=== PATIENT | female | born 1965 | race Caucasian/White ===

== ENCOUNTER → 2024-09-17 16:37 | Outpatient (REF) | payer OTHER, SELFPAY | LOC: RAD 16:37 | PROVIDERS: ATTENDING PHYSICIAN Physician Assistant Medical | DX: R05.1 Acute cough (principal); R50.9 Fever, unspecified | CPT/HCPCS: 71046 ==

== ENCOUNTER 2025-06-30 17:48 | Emergency (ER) | payer OTHER, SELFPAY ==
[2025-06-30 17:50] VITALS: BP 168/86
[2025-06-30] MEDS: TORADOL 15 MG IV (18:51)
--- NOTE | 2025-06-30 19:16 | ED.GENMED ---
History of Present Illness
<Олег Uribe PA-C - Last Filed: 07/01/25 08:07>
General
Chief Complaint: DVT/Possible Blood Clot
Time Seen by Provider: 06/30/25 18:11
History of Present Illness
History of Present Illness:
59-year-old female presents to the emergency department for evaluation of left anterior lower leg pain for the past week. Worse when attempting to ambulate and is also kept her from sleeping at night. Denies any trauma. Feels that the leg is
swollen and is concerned about a DVT. Not on anticoagulants. No recent travel or prolonged immobilization
Past History
<Олег Uribe PA-C - Last Filed: 07/01/25 08:07>
Past History
ED Past Medical History: None
ED Past Surgical History: Other (bariatric surgery)
Social History
Tobacco: Non-smoker
Personal:
Review of Systems
<MARGARITA Segovia Last Filed: 07/01/25 08:07>
Review of Systems
Allergies reviewed?: Yes
All Other Systems: ROS reviewed and negative except as documented in HPI and ROS
Phy Exam
<MARGARITA Segovia Last Filed: 07/01/25 08:07>
Physical Exam
Physical Exam:
GEN: Well appearing, NAD, WDWN
HEENT: Oral mucosa moist, no scleral icterus
Cardiac: Regular rate
Lung: No respiratory distress, no tachypnea
MSK: No gross deformity or injuries. No reproducible tenderness to the left lower leg. No appreciable edema. Left dorsalis pedis pulse is strong. No pain with resisted flexion or extension at the ankle
Skin: Good color, no pallor or jaundice, no rashes
Neuro: AO x3, moves all extremities freely
Psych: Calm, cooperative
Course
<Олег Uribe PA-C - Last Filed: 07/01/25 08:07>
Orders/Labs/Results
Orders:
Orders
06/30/25 17:54
US Legs, Left [US Periph Venous LOWER Ext LT] Urgent
Comment:
Reason For Exam: pain and swelling
06/30/25 18:35
Ketorolac [Toradol] 15 mg IV NOW STA
Vital Signs
Initial and Last Documented VS:
Initial Vital Signs
Temp Pulse Resp BP Pulse Ox
98.1 F 71 20 168/86 99
06/30/25 17:50 06/30/25 17:50 06/30/25 17:50 06/30/25 17:50 06/30/25 17:50
Last Documented Vital Signs
Temp Pulse Resp BP Pulse Ox
98.1 F 71 20 168/86 99
06/30/25 17:50 06/30/25 17:50 06/30/25 17:50 06/30/25 17:50 06/30/25 19:16
<Enoch Larson PA-C - Last Filed: 06/30/25 20:26>
Orders/Labs/Results
Orders:
Orders
06/30/25 17:54
US Legs, Left [US Periph Venous LOWER Ext LT] Urgent
Comment:
Reason For Exam: pain and swelling
06/30/25 18:35
Ketorolac [Toradol] 15 mg IV NOW STA
Vital Signs
Initial and Last Documented VS:
Initial Vital Signs
Temp Pulse Resp BP Pulse Ox
98.1 F 71 20 168/86 99
06/30/25 17:50 06/30/25 17:50 06/30/25 17:50 06/30/25 17:50 06/30/25 17:50
Last Documented Vital Signs
Temp Pulse Resp BP Pulse Ox
98.1 F 71 20 168/86 99
06/30/25 17:50 06/30/25 17:50 06/30/25 17:50 06/30/25 17:50 06/30/25 19:16
<Олег Uribe PA-C - Last Filed: 07/01/25 08:07>
*Pulse Oximetry
SaO2: 99
Oxygen Mode of Delivery: Room air
<Enoch Larson PA-C - Last Filed: 06/30/25 20:26>
*Pulse Oximetry
Patient hypoxic: no
*Critical Care Note
Total Time (30-74mins, 75-104mins- exclusive of procedures): Not Applicable
<Enoch Larson PA-C - Last Filed: 06/30/25 20:26>
Update Note
Update Note:
Assumed care of patient pending ultrasound of leg. Ultrasound is negative for DVT. Patient reassured and discharged
ED Attending Note
<Олег Uribe PA-C - Last Filed: 07/01/25 08:07>
-
Portions of this chart may have been created with voice recognition software.� Occasional wrong word or��sound alike� substitutions may have occurred due to the inherent limitations of voice recognition software.
Discharge Plan
Departure
Patient Disposition: Home (Routine Discharge)
Date of Disposition: 06/30/25
Time of Disposition: 20:13
Patient with high blood pressure during this ER visit?: No
Discharge Problem:
Acute leg pain
Prescriptions:
New
prednisone 10 mg Tablet
See Rx Instructions .ROUTE .COMPLEX Qty: 30 0RF
Rx Instructions:
Take By Mouth:
40 mg daily x3 days, 30 mg daily x3 days,
20 mg daily x3 days, 10 mg daily x3 days.
No Action
Prilosec
Referrals:
Gilbert,Ange L., PA [Family Provider, Family Practice]
Maribel Solano I., DO [Active, Orthopedics]
Activity Restrictions/Additional Instructions:
Use prednisone as directed. Rest. Use warm compresses to the area. Return if worse otherwise follow-up with your doctor or orthopedic
Interventions
Interventions:
*Risk Screen - Suicide Last Done: 06/30/25 17:50
*General Assessment Last Done: 06/30/25 17:50
*Neglect/Abuse Screening Last Done: 06/30/25 17:50
*Nursing Disposition Last Done: 06/30/25 20:28
ED- Cardiac Assessment Last Done: 06/30/25 19:56
ED- Pulmonary Assessment Last Done: 06/30/25 19:57
ED-Peripheral Vascular Assessment Last Done: 06/30/25 19:57
ED-Skin Assessment Last Done: 06/30/25 19:57
Discharge Date and Time
Discharge Date/Time: 06/30/25 20:28
Print Language: [id number]
== END 2025-06-30 20:28 | disposition home or self-care (01) ==
LOC: EMR 17:48
PROVIDERS: EMERGENCY PHYSICIAN Emergency Medicine; FAMILY PHYSICIAN Physician Assistant Medical
DX: M79.662 Pain in left lower leg (principal)
CPT/HCPCS: 99284; 96374; 93971